=== PATIENT | male | born 1990 | race African-American/Black ===

== ENCOUNTER 2018-04-05 21:55 | Emergency (ER) | payer OTHER ==
[~2018-04-05] VITALS: Ht 177.8 cm; Wt 70.5 kg
[2018-04-05 23:14] VITALS: BP 115/63
== END 2018-04-06 02:22 | disposition home or self-care (01) ==
LOC: ER 21:56
DX: T63.441A Toxic effect of venom of bees, accidental (unintentional), initial encounter (principal); R06.02 Shortness of breath; J45.909 Unspecified asthma, uncomplicated; Y92.89 Other specified places as the place of occurrence of the external cause
CPT/HCPCS: 99283